=== PATIENT | male | born 1960 | race Caucasian/White ===

== ENCOUNTER → 2020-12-21 | Day surgery (SDC) | payer OTHER ==
[~2020-12-21] VITALS: Ht 182.9 cm; Wt 111.1 kg
[~2020-12-21] MED LIST: ESCITALOPRAM OX10 MG PO; MELOXICAM15 MG PO; TERBINAFINE HC250 MG PO
[2020-12-21 09:37] LABS: BASOPHIL 1.3 % (0-2); EOSINOPHIL 3.3 % (0-5); HCT 38.6 % (42.0-52.0); LYMPHOCYTE 28.3 % (15-48); MCH 32.6 pg (25.0-31.0); MCHC 36.3 g/dL (32.0-36.0); MONOCYTE 8.4 % (0-12); MPV 9.9 fL (6.0-9.5); NEUTROPHIL 58.4 % (41-80); NRBC 0; PLT 218 K/uL (150-400); RBC 4.29 M/uL (4.70-6.00); RDW 12.7 % (11.5-14.0); WBC 6.9 K/uL (4.0-10.5)
== END | disposition home or self-care (01) ==
LOC: FAS 08:30
PROVIDERS: Oral & Maxillofacial Surgery
DX: K04.7 Periapical abscess without sinus (principal); K02.9 Dental caries, unspecified; F41.9 Anxiety disorder, unspecified
CPT/HCPCS: D7140; D7210; 36415; 71045; 85025; 93005; J1100; J2250; J2405; J2704; J2710; J3010; J7120